=== PATIENT | female | born 1995 | race Caucasian/White ===

== ENCOUNTER 2017-09-14 14:55 | Emergency (ER) | payer OTHER ==
[~2017-09-14] VITALS: Ht 162.6 cm; Wt 68.6 kg
[2017-09-14 18:45] LABS: APPEARANCE CLOUDY ((CLEAR)); BILIRUBIN NEGATIVE; BLOOD LARGE; COLOR YELLOW ((YELLOW)); GLUCOSE (STRIP) NEGATIVE; KETONES 20; LEUKOCYTES LARGE; NITRITE POSITIVE; PROTEIN (STRIP) 100; SPECIFIC GRAVITY 1.019 (1.000-1.030)
[2017-09-14 19:00] LABS: BACTERIA RARE /HPF; EPITHELIAL CELLS 1+ /HPF; MUCUS TRACE /LPF; RED BLOOD CELLS 30-40 /HPF (0-5); UCUL ADDED? YES; WHITE BLOOD CELLS TNTC /HPF (0-5)
[2017-09-14] MEDS ORDERED: KEFLEX500 MG PO (19:12)
[2017-09-14] MEDS ORDERED: FLEXERIL10 MG PO (19:12)
[2017-09-14 19:30] VITALS: BP 120/61
== END 2017-09-14 19:31 | disposition home or self-care (01) ==
LOC: EME 14:55
PROVIDERS: Nurse Practitioner Family
DX: O23.42 Unspecified infection of urinary tract in pregnancy, second trimester (principal); O9A.212 Injury, poisoning and certain other consequences of external causes complicating pregnancy, second trimester; S30.0XXA Contusion of lower back and pelvis, initial encounter; X58.XXXA Exposure to other specified factors, initial encounter; Z3A.18 18 weeks gestation of pregnancy; Z87.440 Personal history of urinary (tract) infections; Z87.891 Personal history of nicotine dependence
CPT/HCPCS: 81003; 87077; 87086; 87186; 99281; 99284

== ENCOUNTER 2018-02-07 12:52 | Inpatient (IN) | payer OTHER, BC ==
[~2018-02-07] VITALS: Ht 162.6 cm; Wt 84.8 kg
[2018-02-07] VITALS (10 sets, daily range): BP systolic 113–145; BP diastolic 60–86
[~2018-02-07 12:52] MED LIST: FLEXERIL10 MG PO; KEFLEX500 MG PO
[2018-02-07] MEDS ORDERED: PRENATABS FA T1 EACH PO (13:41)
[2018-02-07] MEDS ORDERED: MACROBID100 MG PO (13:41)
[2018-02-07 17:47] LABS: BASOPHIL (%) 0.1 % (0-1); EOSINOPHIL (%) 0.4 % (0-5); EOSINOPHIL COUNT 0.1 K/uL (0-0.3); HEMATOCRIT 35.1 % (36.0-46.0); HEMOGLOBIN 11.2 G/DL (11.9-15.5); IMMATURE GRANULOCYTE (%) 0.6 % (0.0-0.7); LYMPHOCYTE COUNT 2.2 K/uL (1.0-2.8); MCH 27.8 PG (29.0-34.0); MCHC 31.9 G/DL (30.0-36.0); MCV 87.1 FL (83-99); MONOCYTE (%) 5.9 % (3-12); MONOCYTE COUNT 0.9 K/uL (0-0.8); NEUTROPHIL COUNT 12.6 K/uL (1.8-6.4); PLATELET COUNT 229 K/uL (156-360); RBC DIS.WIDTH-SD 44.3 % (39-53); RED BLOOD COUNT 4.03 M/uL (3.80-5.20); WHITE BLOOD COUNT 15.9 K/uL (4.1-10.2)
[2018-02-07 18:29] LABS: AMPHETAMINE NEGATIVE (500 ng/mL); BARBITURATES NEGATIVE (200 ng/mL); BENZODIAZEPINES NEGATIVE (150 ng/mL); BUPRENORPHINE NEGATIVE (10 ng/mL); COCAINE NEGATIVE (150 ng/mL); METHADONE NEGATIVE (200 ng/mL); METHAMPHETAMINE NEGATIVE (500 ng/mL); OPIATES (MORPHINE) NEGATIVE (100 ng/mL); OXYCODONE NEGATIVE (100 ng/mL); PHENCYCLIDINE NEGATIVE (25 ng/mL); PROPOXYPHENE NEGATIVE (300 ng/mL); THC CANNABINOIDS NEGATIVE (50 ng/mL); TRICYCLIC ANTIDEPRESSANTS NEGATIVE (300 ng/mL)
[2018-02-07] MEDS ORDERED: IBUPROFEN800 MG PO (19:48)
[2018-02-08 07:07] VITALS: BP 111/59
[2018-02-08 14:46] VITALS: BP 130/62
== END 2018-02-09 16:20 | disposition home or self-care (01) | DRG 775 ==
LOC: LDRP-OP 12:52 → 2WEST 12:56 → LDRP-OP 03-12 09:31
PROVIDERS: Nurse Practitioner
DX: O76 Abnormality in fetal heart rate and rhythm complicating labor and delivery (principal); Z87.440 Personal history of urinary (tract) infections; Z3A.39 39 weeks gestation of pregnancy; Z37.0 Single live birth
CPT/HCPCS: 85025; J0595; J7120